=== PATIENT | male | born 1985 | race Two or more races ===

== ENCOUNTER 2018-09-07 16:15 | Emergency (ER) | payer OTHER ==
[~2018-09-07] VITALS: Ht 177.8 cm; Wt 68.2 kg
[2018-09-07] MEDS ORDERED: CEPHALEXIN MONOHYDRATE 500 MG CAPSULE PO ONE (17:15)
[2018-09-07] MEDS ORDERED: IBUPROFEN 800 MG TABLET PO ONE (17:15)
[2018-09-07 18:15] VITALS: BP 130/75
== END 2018-09-07 18:31 | disposition home or self-care (01) ==
LOC: EMS 16:16
DX: M79.644 Pain in right finger(s) (principal); M79.89 Other specified soft tissue disorders; W22.8XXA Striking against or struck by other objects, initial encounter; Y93.89 Activity, other specified; Y92.69 Other specified industrial and construction area as the place of occurrence of the external cause; Y99.0 Civilian activity done for income or pay

== ENCOUNTER 2020-01-01 16:07 | Emergency (ER) | payer OTHER ==
[~2020-01-01] VITALS: Ht 177.8 cm; Wt 70.0 kg
[2020-01-01] MEDS ORDERED: IBUP-1506 PO (16:14)
[2020-01-01] MEDS ORDERED: ACET-66 PO (16:14)
[2020-01-01 18:23] VITALS: BP 132/79
== END 2020-01-01 18:24 | disposition home or self-care (01) ==
LOC: EMS 16:08
DX: M62.838 Other muscle spasm (principal); F17.210 Nicotine dependence, cigarettes, uncomplicated